=== PATIENT | female | born 1950 | race Caucasian/White ===

== ENCOUNTER 2016-10-17 11:12 | Inpatient (IN) | payer BC ==
[~2016-10-17] VITALS: Ht 162.6 cm; Wt 92.1 kg
[~2016-10-17 11:12] MED LIST: ACET-4192 PO; [UNRECOGNIZED DRUG - CODE] PO
[2016-10-17 11:16] VITALS: BP 155/89
--- NOTE | 2016-10-17 12:56 | NUR ---
Patient ambulated to bed 6.
--- NOTE | 2016-10-17 13:00 | NUR ---
66/F c/o left arm pain since yesterday morning. Denies injury or trauma to arm. Pt describes pain as sudden onset, "feels like spasms" radiating down left arm, constant, /10. No swelling, discoloration noted. Full ROM. Denies numbness or tingling. Denies chest pain or SOB. AOX4, ambulatory with steady gait. VSS. Retired.
--- NOTE | 2016-10-17 13:10 | NUR ---
PATIENT PRESENTS TO ED WITH LEFT SHOULDER PAIN . PT STATES . DENIES N/V/D; SKIN IS PINK/WARM/DRY; AAOX4 WITH EVEN AND STEADY GAIT; LUNGS CLEAR BL; HR EVEN AND REGULAR; PT DENIES ANY FEVER, CP, SOB, OR COUGH AT THIS TIME; PATIENT STATES PAIN OF 7/10 AT THIS TIME; VSS; PATIENT POSITIONED FOR COMFORT; HOB ELEVATED; BEDRAILS UP X2; BED DOWN. ER MD MADE AWARE OF PT STATUS.
--- NOTE | 2016-10-17 13:50 | NUR ---
DR. RHOADES AT BEDSIDE TO CHECK PT.
[2016-10-17] MEDS ORDERED: MORPHINE SULFATE 4 MG/ML SYR IVP ONE (14:00)
--- NOTE | 2016-10-17 14:20 | NUR ---
US TECH AT BEDSIDE.
[2016-10-17 14:25] LABS: BASOPHILS # (AUTO) 0.2 K/uL (0.00-0.22); BASOPHILS % (AUTO) 2.1 % (0.0-2.0); EOSINOPHILS # (AUTO) 0.2 K/uL (0-0.4); EOSINOPHILS % (AUTO) 2.1 % (0.0-4.0); HEMOGLOBIN 15.2 g/dL (12.0-16.0); LYMPHOCYTES # (AUTO) 3.8 K/uL (2.5-16.5); LYMPHOCYTES % (AUTO) 33.1 % (20.5-51.1); MEAN CORPUSCULAR HEMOGLOBIN 29 pg (27-31); MEAN CORPUSCULAR HGB CONC 32 g/dL (33-37); MEAN CORPUSCULAR VOLUME 91 fL (80-94); MONOCYTES # (AUTO) 0.5 K/uL (0.8-1.0); MONOCYTES % (AUTO) 3.9 % (1.7-9.3); NEUTROPHILS # (AUTO) 6.9 K/uL (1.8-7.7); NEUTROPHILS % (AUTO) 58.8 % (42.2-75.2); PLATELET COUNT (AUTO) 198 K/uL (140-450); RED BLOOD CELL COUNT(AUTO) 5.18 MIL/uL (4.20-5.40); RED CELL DISTRIBUTION WIDTH 13.8 % (11.6-13.7); WHITE BLOOD COUNT (AUTO) 11.6 K/uL (4.8-10.8)
[2016-10-17] MEDS ORDERED: KETOROLAC 30 MG/ML VIAL IVP ONE (14:45)
[2016-10-17 14:47] LABS: ALBUMIN 3.8 g/dL (3.4-5.0); CREATININE 0.8 mg/dL (0.6-1.3); TOTAL BILIRUBIN 0.5 mg/dL (0.0-1.0); TOTAL PROTEIN, SERUM 7.8 g/dL (6.4-8.2)
[2016-10-17 14:57] LABS: PARTIAL THROMBOPLASTIN TIME 30.6 secs (22-35.6); PROTHROMBIN TIME 10.6 secs (10.8-13.4)
[2016-10-17] MEDS ORDERED: ENOXAPARIN 80 MG/0.8 ML SYR SUBQ ONE (15:15)
[2016-10-17] MEDS: NACL 0.9% 1,000 ML IV SCH ×2 (15:27→17:52)
[2016-10-17] MEDS ORDERED: ACETAMINOPHEN 325 MG TAB PO PRN (15:30)
[2016-10-17] MEDS ORDERED: MORPHINE SULFATE 2 MG/ML SYR IVP PRN (15:30)
[2016-10-17] MEDS ORDERED: ONDANSETRON 4 MG/2 ML VIAL IM/IVP PRN (15:30)
[2016-10-17] MEDS ORDERED: DOCUSATE SODIUM 100 MG GELCAP PO PRN (15:30)
[2016-10-17] MEDS ORDERED: HEPARIN PER PHARMACY MC PRN (15:45)
[2016-10-17 16:27] LABS: CHOL/HDL RATIO 4.5 (1-4.5); FREE T4 (FREE THYROXINE) 1.09 ng/dL (0.76-1.46); PHOSPHORUS 3.6 mg/dL (2.5-4.9); THYROID STIMULATING HORMONE 3.37 uIU/mL (0.34-3.74)
--- NOTE | 2016-10-17 16:36 | NUR ---
REPORT GIVEN TO GENE NEVAREZ.
--- NOTE | 2016-10-17 16:42 | NUR ---
PT AWAKE, ALERT, AND ORIENTED. ON ROOM AIR, NO S/S OF RESPIRATORY DISTRESS NOTED. ALL PERSOANL BELONGINGS WITH PT.PT STATED PAIN GET BETTER. TRANSFERRED PT TO TELE 112 B VIA WHEELCHAIR.
[2016-10-17 17:00] VITALS: BP 192/96
--- NOTE | 2016-10-17 17:15 | NUR ---
RECEIVED PT ON FLOOR VIA VIRGENRAARON, PT IS A/OX4, AMBULATORY, IV IS PATENT, INTACT, FLUSHING WELL, SKIN IS INTACT, NO S/S OF RESPIRATORY DISTRESS OR DISCOMFORT NOTED, ORIENTED PT TO ROOM, DISCUSSED PLAN OF CARE WITH PT, PT VERBALIZED UNDERSTANDING, SAFETY/FALL PRECAUTIONS ARE IN PLACE, CALL LIGHT WITHIN REACH, WILL CONTINUE TO MONITOR.
[2016-10-17] MEDS: hePARIN / DEXT 5% PREMIX 250 ML IV SCH (18:03)
--- NOTE | 2016-10-17 18:30 | NUR ---
PT IS RESTING IN BED, NO S/S OF RESPIRATORY DISTRESS OR DISCOMFORT NOTED, CALL LIGHT WITHIN REACH.
--- NOTE | 2016-10-17 19:20 | NUR ---
PT ENDORSED TO LVN. PIPO FOR CONTINUITY OF CARE. PT STABLE AT THIS TIME.
--- NOTE | 2016-10-17 19:23 | NUR ---
PATIENT IS CURRENTLY RESTING IN BED AT THIS TIME AWAKE ALERT AND HAS NO COMPLAINS OF PAIN AT THIS TIME.PATIENT CONTINUES BE ON CONTINUOUS HEPARIN IV DRIP.IV SITE PATENT.WILL CONTINUE TO MONITOR.
[2016-10-17 19:57] LABS: MAGNESIUM 1.8 mg/dL (1.8-2.4); PHOSPHORUS 3.2 mg/dL (2.5-4.9)
[2016-10-17 20:00] VITALS: BP 145/70
--- NOTE | 2016-10-17 20:00 | NUR ---
Patient's Plan of Care was discussed and reviewed with PANFILO: HECTOR
--- NOTE | 2016-10-17 20:05 | NUR ---
RESIDENT FREDY CAME AND ASKED ME ABOUT THE PATIENT HOW IS SHE DOING.I INFORMED HER THAT HER BLOOD PRESSURE IN ER WAS HIGH UPON ADMISSION WAS HIGH ENDORSED BY MORNING NURSE LESTER, BUT AT THIS TIME HER CURRENT BLOOD PRESSURE IS 145/70 RESIDENT AWARE NO NEW ORDER GIVEN.
[2016-10-17] MEDS ORDERED: SIMVASTATIN 20 MG TAB PO SCH (21:00)
[2016-10-17] MEDS ORDERED: ZOLPIDEM 10 MG TAB PO PRN (21:45)
--- NOTE | 2016-10-17 22:45 | NUR ---
MD MAGANA WAS HERE WAS INFORMED THAT PATIENT IS ON HEPARIN DRIP IV AND PTT NEEDS TO BE DONE EVERY SIX HOURS I BROUGHT TO HIS ATTENTION THAT THE NEXT PTT DRAW WAS ORDERED AT MIDNIGHT AND TOLD MD IF PATIENT NEEDS ONE NOW SINCE ITS BEEN A LITTLE OVER SIX HOURS FROM LAST BLOOD DRAWN AND PATIENT IS ON HEPARIN IV DRIP.MD SAEZ SAID HE WILL PUT IN ORDERS.WILL CARRY THEM OUT.
[2016-10-18] VITALS: BP 138/63
--- NOTE | 2016-10-18 00:03 | NUR ---
RESIDENT FREDY CAME BY AND ASKED HOW IS THE PATIENT DOING.I INFORMED HER THAT IM JUST WAITING FOR LAB TO DRAW THE PT/PTT AND INR AT THIS TIME AND WILL WAIT FOR THE LAB RESULTS.
--- NOTE | 2016-10-18 00:12 | NUR ---
I INFORMED EMERGENCY NURSE PAZ THAT PATIENT NEEDS TO HAVE HER PT/PTT INR LAB DRAWN SHE SAID THE EMERGENCY NURSE IS ON HIS WAY.
--- NOTE | 2016-10-18 00:14 | NUR ---
PATIENT PT/PTT LAB BEING DRAWN BY [employer].
[2016-10-18 01:13] LABS: INR 1.1 (0.8-1.2); PROTHROMBIN TIME 10.8 secs (10.8-13.4)
--- NOTE | 2016-10-18 01:14 | NUR ---
I CALLED WEIGHT LOSS SALES CONSULTANT AND ASKED HIM IF HE HAS ANY RESULTS ON THE PT/PTT LAB DRAWS BECAUSE IT SHOWS THAT ITS STILL PENDING IN THE COMPUTER.HE SAID HE WILL FOLLOW UP WITH THE OTHER WEIGHT LOSS SALES CONSULTANT.
[2016-10-18 01:16] LABS: PARTIAL THROMBOPLASTIN TIME 80.2 secs (22-35.6)
--- NOTE | 2016-10-18 01:16 | NUR ---
I GOT A CALL BACK FROM [facility] AND GAVE ME THE PTT RESULTS SAID SHE WILL PLACE IT IN THE COMPUTER FOR ME TO SEE.
--- NOTE | 2016-10-18 01:18 | NUR ---
ROQUE COWAN INFORMED OF RESULTS AND SAW RESULTS IN THE COMPUTER.HE WILL FOLLOW HEPARIN DRIP IV PROTOCOL FOR TITRATION.
[2016-10-18] MEDS: hePARIN / DEXT 5% PREMIX 250 ML IV SCH (01:21)
--- NOTE | 2016-10-18 01:21 | NUR ---
APTT 80.2, HEPARIN DRIP RATE REDUCED TO 1100 UNITS/HR PER PROTOCOL ORDERED WITH 2 RN VERIFICATION. CHARGE NURSE TO ORDER NEXT APTT LAB DRAW PER PROTOCOL. HEP DRIP INFUSING WELL.
--- NOTE | 2016-10-18 02:02 | NUR ---
PATIENT ASSISTED TO THE BATHROOM AND BACK TO BED AND THEN PATIENT COMPLAINS OF FEELING NAUSEATED SO ROQUE COWAN HAS BEEN INFORMED AND SHE WILL RECEIVE ZOFRAN IV.
--- NOTE | 2016-10-18 03:39 | NUR ---
PATIENT COMPLAINS OF IV BEEPING,I CHECKED IV AND ITS FINE NO INFILTRATION NOTED OR PUFFYNESS IV LINE HAS GOOD BLOOD RETURN.PATIENT STATES,"IM SORRY I CONSTANTLY TOSS AND TURN IN BED." I EXPLAINED TO THE PATIENT THAT IT MAY BE POSITIONAL AND MONSERRAT URBINA BROUGHT A PILLOW FOR HER HAND.I ASKED THE PATIENT IF I COULD START ANOTHER IV LINE. AT FIRST PATIENT HAD REFUSED, BUT THEN SHE AGREED.
--- NOTE | 2016-10-18 03:40 | NUR ---
WILL KEEP HER HAND ON A PILLOW BUT IF THE IV BEEPS AGAIN I WILL RESTART A NEW IV LINE I INFORMED THE PATIENT SHE AGREES AND VERBALIZES UNDERSTANDING.
[2016-10-18] MEDS: HYDROcodone/APAP 7.5/325 MG 1 TAB PO PRN ×2 (03:48→11:40)
[2016-10-18 04:08] VITALS: BP 151/84
--- NOTE | 2016-10-18 04:27 | NUR ---
PATIENT IV CONTINUES TO BEEP NOTHING WRONG WITH CURRENT IV LINE NO INFILTRATION OR PUFFINESS JUST POSITIONAL.BUT PATIENT AGREES TO HAVE A NEW IV LINE INSERTED.
--- NOTE | 2016-10-18 04:31 | NUR ---
I RESTARTED AN IV LINE AT FIRST ATTEMPT,PATIENT HAS A NEW IV LINE TO RT FOREARM G#22 WITH GOOD BLOOD RETURN.PATIENT TOLERATED PROCEDURE WELL.PATIENT THEN REQUESTED FOR A JELLO GELATIN AND IT WAS GIVEN TO THE PATIENT.THEN SHE WANTED A BLANKET AND IT WAS ALSO GIVEN TO THE PATIENT.NEEDS MET.
--- NOTE | 2016-10-18 05:40 | NUR ---
PATIENT SLEEPING.NO DISTRESS WILL CONTINUE TO MONITOR.
[2016-10-18 06:23] LABS: BASOPHILS # (AUTO) 0.1 K/uL (0.00-0.22); BASOPHILS % (AUTO) 1.2 % (0.0-2.0); EOSINOPHILS # (AUTO) 0.2 K/uL (0-0.4); HEMATOCRIT 41.4 % (36-48); HEMOGLOBIN 13.9 g/dL (12.0-16.0); LYMPHOCYTES # (AUTO) 3.5 K/uL (2.5-16.5); LYMPHOCYTES % (AUTO) 40.1 % (20.5-51.1); MEAN CORPUSCULAR HEMOGLOBIN 31 pg (27-31); MEAN CORPUSCULAR HGB CONC 34 g/dL (33-37); MEAN CORPUSCULAR VOLUME 91 fL (80-94); MONOCYTES # (AUTO) 0.5 K/uL (0.8-1.0); MONOCYTES % (AUTO) 6.1 % (1.7-9.3); NEUTROPHILS # (AUTO) 4.5 K/uL (1.8-7.7); NEUTROPHILS % (AUTO) 50.6 % (42.2-75.2); PLATELET COUNT (AUTO) 195 K/uL (140-450); RED BLOOD CELL COUNT(AUTO) 4.56 MIL/uL (4.20-5.40); RED CELL DISTRIBUTION WIDTH 13.6 % (11.6-13.7); WHITE BLOOD COUNT (AUTO) 8.8 K/uL (4.8-10.8)
[2016-10-18 06:58] LABS: PROTHROMBIN TIME 9.9 secs (10.8-13.4)
--- NOTE | 2016-10-18 07:01 | NUR ---
PATIENT HAS BEEN SCREENED AND CATEGORIZED LOW NUTRITION RISK. PATIENT WILL BE SEEN WITHIN 7 DAYS OF ADMISSION. 10/25/15 RADHA ALLEN MS, RDN
--- NOTE | 2016-10-18 07:15 | NUR ---
I CALLED LAB AND SPOKE TO PHYSICAL FITNESS TRAINER IN REGARDS TO THE PT/PTT LAB DRAW IT SHOWS ITS STILL PENDING.REPORT HAS BEEN ENDORSED TO ROQUE MOY AT BEDSIDE AND SHE WILL FOLLOW UP AND RESUME CARE OF THE PATIENT.
--- NOTE | 2016-10-18 07:17 | NUR ---
RECEIVED REPORT FROM MAG RN. PT SLEEPING IN BED. AAOX4. NO S/S OF ACUTE DISTRESS. IV SITES PATENT AND INTACT. INFUSING HEPARIN AT 11ML/HR. NO SWELLING, WARMTH OR REDNESS NOTED TO MOISÉS. CALL LIGHT WITHIN REACH. SAFETY MEASURES ENSURED. WILL CONTINUE TO MONITOR.
[2016-10-18 07:24] LABS: ANION GAP 11.3 (8-16); CALCIUM 8.8 mg/dL (8.5-10.1); CARBON DIOXIDE 27.8 mmol/L (21-32); CREATININE 0.9 mg/dL (0.6-1.3); POTASSIUM 4.1 mmol/L (3.5-5.1)
[2016-10-18 07:48] VITALS: BP 177/83
[2016-10-18 08:58] VITALS: BP_SYST 162; BP_SYST 177; BP_DIAS 81; BP_DIAS 83
[2016-10-18 09:13] LABS: T4 (THYROXINE) 7.2 ug/dL (4.5-12.0)
--- NOTE | 2016-10-18 09:21 | NUR ---
PT SLEEPING IN BED. NO S/S OF ACUTE DISTRESS. CALL LIGHT WITHIN REACH. SAFETY MEASURES ENSURED. WILL CONTINUE TO MONITOR.
[2016-10-18] MEDS ORDERED: DOCU-67 PO ×2 (09:22→11:48)
[2016-10-18] MEDS ORDERED: ACET-9529 PO (11:24)
[2016-10-18] MEDS ORDERED: LISI-420 PO (11:28)
[2016-10-18] MEDS ORDERED: LISINOPRIL 20 MG TAB PO SCH (11:30)
[2016-10-18] MEDS ORDERED: RIVA15TA1 PO (11:32)
[2016-10-18] MEDS ORDERED: ATOR10TA PO (11:47)
[2016-10-18 12:00] VITALS: BP 174/83
--- NOTE | 2016-10-18 12:08 | NUR ---
PT SLEEPING IN BED. NO S/S OF ACUTE DISTRESS. CALL LIGHT WITHIN REACH. WILL CONTINUE TO MONITOR.
--- NOTE | 2016-10-18 12:34 | NUR ---
HEPARIN DRIP DISCONTINUED AT 1234. PT IS NOW SALINE LOCKED.
--- NOTE | 2016-10-18 12:40 | NUR ---
PT'S BLOOD PRESSURE 182/[address] MOORE MADE AWARE. MD STATES TO RECHECK IN 1 HOUR AND NOTIFY HIM. PT MADE AWARE OF DISCHARGE BEING POSTPONED UNTIL STABLE BLOOD PRESSURE IS REACHED. PT VERBALIZED UNDERSTANDING.
[2016-10-18] MEDS ORDERED: RIVAROXABAN 15 MG TAB PO SCH (13:17)
--- NOTE | 2016-10-18 14:59 | NUR ---
PT CLEARED FOR DISCHARGE. DISCHARGE INSTRUCTIONS PROVIDED. PT VERBALIZED UNDERSTANDING. IV'S TAKEN OUT. TIPS INTACT. NO S/S OF ACUTE DISTRESS. PT DENIES PAIN. PT TAKEN OFF UNIT.
[2016-10-19] MEDS ORDERED: LISINOPRIL 20 MG TAB PO SCH (09:00)
[2016-10-20 12:36] LABS: HEMOGLOBIN A1C 5.7 % (4.8-5.6)
--- NOTE | 2016-10-20 16:38 | NUR ---
[facility] RETRO SENT TO [employer] [phone]. PHONE STANISLAV [phone]. I SPOKE WITH STANISLAV AND SHE TOLD ME TO FAX REVIEW TO ABOVE NUMBER. I TOLD HER THE NAME WE HAD FOR THIS PATIENT IS ISABELA SANTANA. REF #[id number] RETRO REVIEW FAXED ER REPORT, H&P AND DISCHARGE SUMMARY.
== END 2016-10-18 14:59 | disposition home or self-care (01) | DRG 301 ==
LOC: MED 11:12 → MTU 12:56
PROVIDERS: ADMIT Family Medicine; ATTEND Family Medicine
DX: I82.622 Acute embolism and thrombosis of deep veins of left upper extremity (principal); E78.5 Hyperlipidemia, unspecified; F17.200 Nicotine dependence, unspecified, uncomplicated; I15.8 Other secondary hypertension; F19.90 Other psychoactive substance use, unspecified, uncomplicated; E66.9 Obesity, unspecified; Z88.0 Allergy status to penicillin; Z90.710 Acquired absence of both cervix and uterus; Z82.49 Family history of ischemic heart disease and other diseases of the circulatory system; Z68.34 Body mass index [BMI] 34.0-34.9, adult; Z71.6 Tobacco abuse counseling; Z71.3 Dietary counseling and surveillance
CPT/HCPCS: 36415; 71010; 80048; 80053; 82150; 83036; 83690; 83735; 83880; 84100; 84436; 84439; 84443; 84479; 84484; 85025; 85610; 85730; 87081; 93005; 93970; 93971; 96372; 99285; J1644; J1650; J1885; J2270; J2405; J7030; Q0092

== ENCOUNTER 2016-10-19 23:25 | Emergency (ER) | payer BC ==
[~2016-10-19] VITALS: Ht 165.1 cm; Wt 92.5 kg
[~2016-10-19 23:25] MED LIST changes: +ACET-9529 PO; +ATOR10TA PO; +DOCU-67 PO; +LISI-420 PO; +RIVA15TA1 PO
[2016-10-19 23:29] VITALS: BP 167/100
--- NOTE | 2016-10-19 23:41 | NUR ---
TO ER BED 5
--- NOTE | 2016-10-19 23:44 | NUR ---
66 Y/O F W/C/O LEFT ARM PAIN SINCE 5 DAYS AGO. PT STATES WAS ADMITTED 2 DAYS AGO AND JUST GOT DISCHARGED THIS MORNING FOR SAME ISSUE. PT STATES WAS DIAGNOSED WITH BLOOS CLOTS ON HER LEFT ARM. DENIES ANY CHEST PAIN OR SOB, ONLY C/O L UPPER PAIN. PER PT SHE TOOK NORCO 30 MINUTES AGO. NO S/S OF DSITRESS NOTED AT THE MOMENT. ER MD MADE AWARE.
[2016-10-20] MEDS ORDERED: KETOROLAC 30 MG/ML VIAL IM ONE (00:15)
--- NOTE | 2016-10-20 00:44 | NUR ---
PT RESTING, VSS. NO S/S OF DISTRESS NOTED SO FAR.
--- NOTE | 2016-10-20 01:07 | NUR ---
Patient discharged with v/s stable. Written and verbal after care instructions given and explained. Patient alert, oriented and verbalized understanding of instructions. Ambulatory with steady gait. All questions addressed prior to discharge. ID band removed. Patient advised to follow up with PMD. Rx of VALIUM 5 MG given. Patient educated on indication of medication including possible reaction and side effects. Opportunity to ask questions provided and answered.
[2016-10-20 01:08] VITALS: BP 146/67
== END 2016-10-20 01:07 | disposition home or self-care (01) ==
LOC: MED 23:25
DX: I82.622 Acute embolism and thrombosis of deep veins of left upper extremity (principal); F17.210 Nicotine dependence, cigarettes, uncomplicated; Z88.0 Allergy status to penicillin
CPT/HCPCS: 96372; 99283; J1885

== ENCOUNTER 2017-03-15 12:22 | Emergency (ER) | payer BC ==
[~2017-03-15] VITALS: Ht 165.1 cm; Wt 91.2 kg
[~2017-03-15 12:22] MED LIST changes: -ACET-4192 PO; +BISM262O11 PO; +DOCU-299 PO; -DOCU-67 PO; -[UNRECOGNIZED DRUG - CODE] PO
--- NOTE | 2017-03-15 12:32 | NUR ---
Patient ambulated to bed 03.
[2017-03-15 12:34] VITALS: BP 144/112
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
--- NOTE | 2017-03-15 13:11 | NUR ---
Dr. Gilbert evaluating patient at bedside.
[2017-03-15] MEDS ORDERED: IBUPROFEN 600 MG TAB PO ONE (13:20)
--- NOTE | 2017-03-15 13:30 | NUR ---
XRAY at bedside.
--- NOTE | 2017-03-15 14:23 | NUR ---
LAB at bedside.
--- NOTE | 2017-03-15 15:35 | NUR ---
Patient discharged with v/s stable. Written and verbal after care instructions given and explained. Patient alert, oriented and verbalized understanding of instructions. Ambulatory with steady gait. All questions addressed prior to discharge. ID band removed. Patient advised to follow up with PMD. Rx of MOTRIN 600MG given. Patient educated on indication of medication including possible reaction and side effects. Opportunity to ask questions provided and answered.
[2017-03-15 15:36] VITALS: BP 137/82
== END 2017-03-15 15:35 | disposition home or self-care (01) ==
LOC: MED 12:22 → EDUNIT# 12:22 → MED 15:35
DX: S93.492A Sprain of other ligament of left ankle, initial encounter (principal); Z79.899 Other long term (current) drug therapy; Z88.0 Allergy status to penicillin; W10.9XXA Fall (on) (from) unspecified stairs and steps, initial encounter; Y93.01 Activity, walking, marching and hiking; Y92.89 Other specified places as the place of occurrence of the external cause; Y99.8 Other external cause status
CPT/HCPCS: 36415; 73610; 73630; 84550; 99285

== ENCOUNTER 2018-12-04 13:26 | Emergency (ER) | payer BC ==
[~2018-12-04] VITALS: Ht 165.1 cm; Wt 95.7 kg
[2018-12-04 13:37] VITALS: BP 119/75
--- NOTE | 2018-12-04 14:05 | NUR ---
WAIT IN LOBBY, VSS.
--- NOTE | 2018-12-04 14:59 | NUR ---
PT AMBULATED TO ER BED 03
--- NOTE | 2018-12-04 15:10 | NUR ---
PT PRESENTS TO ED WITH C/O MULTIPLE BUG BITES, PT REPORTS POSSIBLE FLEAS INFESTATION AT HOME. REPORTS ITCHING SENSATION FOR THE PAST WEEK. DENIES ANY MEDICAL HISTORY.
[2018-12-04 16:50] VITALS: BP 111/69
--- NOTE | 2018-12-04 16:50 | NUR ---
Patient discharged with v/s stable. Written and verbal after care instructions given and explained. Patient alert, oriented and verbalized understanding of instructions. Ambulatory with steady gait. All questions addressed prior to discharge. ID band removed. Patient advised to follow up with PMD. Rx of benadryl given. Patient educated on indication of medication including possible reaction and side effects. Opportunity to ask questions provided and answered.
--- NOTE | 2018-12-04 17:09 | NUR ---
Akua mcdowell in [facility] - 12/04/18 at [address] VENEGAS EVALUATING PT AT THIS TIME.
== END 2018-12-04 16:50 | disposition home or self-care (01) ==
LOC: MED 13:26
DX: S80.862A Insect bite (nonvenomous), left lower leg, initial encounter (principal); S80.861A Insect bite (nonvenomous), right lower leg, initial encounter; S00.06XA Insect bite (nonvenomous) of scalp, initial encounter; Z79.899 Other long term (current) drug therapy; Z79.01 Long term (current) use of anticoagulants; Z79.891 Long term (current) use of opiate analgesic; Z88.0 Allergy status to penicillin; W57.XXXA Bitten or stung by nonvenomous insect and other nonvenomous arthropods, initial encounter; Y92.89 Other specified places as the place of occurrence of the external cause; Y93.89 Activity, other specified; Y99.8 Other external cause status
CPT/HCPCS: 99282

== ENCOUNTER 2018-12-18 02:40 | Emergency (ER) | payer BC ==
[~2018-12-18] VITALS: Ht 165.1 cm; Wt 93.9 kg
[2018-12-18 02:44] VITALS: BP 164/74
--- NOTE | 2018-12-18 02:51 | NUR ---
PT AMBULATED TO BED #3
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
[2018-12-18 04:30] VITALS: BP 145/72
--- NOTE | 2018-12-18 04:30 | NUR ---
PT DISCHARGED WITH PAPERWORK. RX PREDNISONE, MOTRIN, BACTRIM, ATARAX. EDUCATED PT REGARDING MEDICATIONS AND S/E. EDUCATED PT REGARDING D/C DIAGNOSIS. PT VERBALIZED UNDERSTANDING OF TEACHING. TOLD PT TO FOLLOW UP WITH PCP AND WHEN TO RETURN TO ED. PT VSS. ALL QUESTIONS ANSWERED.
== END 2018-12-18 04:30 | disposition home or self-care (01) ==
LOC: MED 02:40
DX: R21 Rash and other nonspecific skin eruption (principal); R51 Headache; R22.0 Localized swelling, mass and lump, head; F32.9 Major depressive disorder, single episode, unspecified; F17.200 Nicotine dependence, unspecified, uncomplicated; Z90.710 Acquired absence of both cervix and uterus; Z98.890 Other specified postprocedural states; Z79.899 Other long term (current) drug therapy; Z88.0 Allergy status to penicillin
CPT/HCPCS: 81002; 99283

== ENCOUNTER 2018-12-23 09:20 | Emergency (ER) | payer BC ==
[~2018-12-23] VITALS: Ht 165.1 cm; Wt 93.4 kg
--- NOTE | 2018-12-23 09:25 | NUR ---
Patient ambulated to bed 7 at this time.
[2018-12-23 09:30] VITALS: BP 132/86
--- NOTE | 2018-12-23 09:50 | NUR ---
PT C/O RECTAL BLEEDING W/O PAIN AND HEMATOCHEZIA FOR 2 DAYS. PT WENT TO HER PCP YESTERDAY AND WAS RULE OUT OF HAVING HEMORRHOIDS. PT DENIES HAD THE SAME SX BEFORE. DENIES PENCIL-LIKE OR HARD STOOL. DENIES MUCUS IN STOOL. PT STATES NEVER HAD COLONOSCOPY BEFORE. PATIENT STATES PAIN OF 0/10 AT THIS TIME; VSS; PATIENT POSITIONED FOR COMFORT; HOB ELEVATED; BEDRAILS UP X1; BED DOWN. ER MADE AWARE OF PT STATUS. Addendum: 12/23/18 at 0959 by [employer] PT STATES HER DAD AND AUNT OF CANCER, PT DOES NOT KNOW WHAT TYPE OF CANCER THEY HAD. 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 REPORTS LOST 5 LBS DURING LAST WEEK.
--- NOTE | 2018-12-23 10:19 | NUR ---
DR. AGUERO IS EVALUATING PT AT BEDSIDE.
[2018-12-23] MEDS ORDERED: NACL 0.9% 1,000 ML IV ONE (10:25)
--- NOTE | 2018-12-23 10:39 | NUR ---
LAB AT BEDSIDE.
[2018-12-23 10:45] LABS: BASOPHILS # (AUTO) 0.1 K/uL (0.00-0.22); BASOPHILS % (AUTO) 0.8 % (0.0-2.0); EOSINOPHILS % (AUTO) 0.2 % (0.0-4.0); HEMATOCRIT 45.8 % (36-48); HEMOGLOBIN 15.4 g/dL (12.0-16.0); LYMPHOCYTES # (AUTO) 4.3 K/uL (2.5-16.5); LYMPHOCYTES % (AUTO) 23.8 % (20.5-51.1); MEAN CORPUSCULAR HEMOGLOBIN 31 pg (27-31); MEAN CORPUSCULAR HGB CONC 34 g/dL (33-37); MEAN CORPUSCULAR VOLUME 91.4 fL (80-94); MONOCYTES # (AUTO) 1.2 K/uL (0.8-1.0); MONOCYTES % (AUTO) 6.5 % (1.7-9.3); NEUTROPHILS # (AUTO) 12.5 K/uL (1.8-7.7); NEUTROPHILS % (AUTO) 68.7 % (42.2-75.2); PLATELET COUNT (AUTO) 233 K/uL (140-450); RED BLOOD CELL COUNT(AUTO) 5.01 MIL/uL (4.20-5.40); RED CELL DISTRIBUTION WIDTH 15.5 % (11.6-13.7); WHITE BLOOD COUNT (AUTO) 18.2 K/uL (4.8-10.8)
[2018-12-23 11:03] LABS: ALBUMIN 3.6 g/dL (3.4-5.0); ANION GAP 12.1 (8-16); POTASSIUM 4.1 mmol/L (3.5-5.1); TOTAL BILIRUBIN 0.5 mg/dL (0.0-1.0)
--- NOTE | 2018-12-23 11:19 | NUR ---
PT IS RESTING IN BED WITH EYES CLOSED. SALINE IS RUNNING VIA IV.
[2018-12-23 11:55] VITALS: BP 148/60
--- NOTE | 2018-12-23 11:55 | NUR ---
Patient discharged with v/s stable. Written and verbal after care instructions given and explained. Patient verbalized understanding. Ambulatory with steady gait. All questions addressed prior to discharge. Advised to follow up with PMD.
--- NOTE | 2018-12-24 08:38 | NUR ---
Late entry. Confirmed with RN that 0.9 NS IV at 100ml/hr ended at 1155.
== END 2018-12-23 11:55 | disposition home or self-care (01) ==
LOC: MED 09:20
DX: K62.5 Hemorrhage of anus and rectum (principal); I10 Essential (primary) hypertension; E78.5 Hyperlipidemia, unspecified; Z88.0 Allergy status to penicillin; Z79.899 Other long term (current) drug therapy
CPT/HCPCS: 36415; 80053; 85025; 99283; J7030